=== PATIENT | female | born 1990 | race Caucasian/White ===

== ENCOUNTER 2021-09-11 09:29 | Emergency (ER) | payer BC, SELFPAY ==
[2021-09-11] MEDS ORDERED: diphenhydrAMINE 25 MG CAP ONE (10:44)
[2021-09-11] MEDS ORDERED: Dexamethasone 10 MG/ML VIAL ONE (10:44)
[2021-09-11] MEDS ORDERED: Famotidine 20 MG TAB ONE (10:45)
== END 2021-09-11 11:20 | disposition home or self-care (01) ==
LOC: CSHERS 09:29
DX: T78.40XA Allergy, unspecified, initial encounter (principal)
CPT/HCPCS: 99283; J1100